=== PATIENT | female | born 1990 | race Caucasian/White ===

== ENCOUNTER 2017-02-13 00:07 | Emergency (ER) | payer OTHER ==
--- NOTE | 2017-02-13 00:43 | ED Physician Documentation ---
Nausea/Vomiting/Diarrhea - HISTORIAN Historian: patient - HPI Chief Complaint: Nausea,Vomiting,Diarrhea Onset: other (0730 this AM) Duration: waxing, waning Last known Well Code/Unknown Code: Known Timing: sudden onset - Associated Symptoms Vomiting: frequent. denies: bloody, blood-streaked Diarrhea: mild Abdominal Pain: cramping, aching, epigastric - ROS CONST: no problems, chills. denies: fever - PAST HX Past History: other (anxiety, depression, acid reflux) Surgeries/Procedures: other (tonsilectomy) Immunizations: referred to PCP Allergies/Adverse Reactions: Allergies Allergy/AdvReac Type Severity Reaction Status Date / Time sulfamethoxazole Allergy Verified 02/13/17 00:37 [From Bactrim] trimethoprim [From Bactrim] Allergy Verified 02/13/17 00:37 levalbuterol HCl AdvReac Rash Verified 02/13/17 00:37 [From Xopenex] Home Medications: Ambulatory Orders Medication Instructions Recorded Cyclobenzaprine HCl [Flexeril] 10 mg PO QD 02/13/17 Trazodone HCl 50 mg PO HS 02/13/17 - SOCIAL HX Smoking History: less than 1 pack/day (1/2 ppd) Alcohol Use: other (yesterday) Drug Use: none - FAMILY HX Family History: none - VITAL SIGNS Vital Signs: Vital Signs Temp Pulse Resp BP Pulse Ox 98.0 F 84 16 106/80 98 02/13/17 00:10 02/13/17 00:10 02/13/17 00:10 02/13/17 00:10 02/13/17 00:10 - REVIEWED ASSESSMENTS Nursing Assessment Reviewed: Yes Vitals Reviewed: Yes Progress - Progress Progress: 01:53 Patient states that her nausea and abd pain are better ED Results Lab/Radiology - Lab Results Lab Results: Lab Results 02/13/17 02/13/17 02/13/17 00:57 00:57 00:57 WBC 17.10 K/ul H K/ul (4.00-12.00) RBC 4.54 M/ul M/ul (3.90-5.20) Hgb 13.9 g/dL g/dL (12.0-16.0) Hct 40.7 % % (34.5-46.5) MCV 89.6 fl fl (80.0-100.0) MCH 30.5 pg pg (28.0-34.0) MCHC 34.1 g/dL g/dL (30.0-36.0) RDW 12.5 % % (11.3-14.3) Plt Count 399 K/mm3 K/mm3 (130-400) Neut % (Auto) 88.4 % H % (39.0-79.0) Lymph % (Auto) 6.8 % L % (16.0-50.0) [place] % (Auto) 3.8 % % (0.0-11.0) Eos % (Auto) 0.2 % % (0.0-6.8) Baso % (Auto) 0.3 (0.0-1.5) Neut # (Auto) 15.1 # k/uL H # k/uL (1.4-7.7) Lymph # (Auto) 1.2 # k/uL # k/uL (0.6-4.0) [place] # (Auto) 0.6 # k/uL # k/uL (0.0-0.9) Eos # (Auto) 0.0 # k/uL # k/uL (0.0-0.6) Baso # (Auto) 0.1 # k/uL # k/uL (0.0-0.5) Reactive Lymphs % 0.5 % % (0.0-5.0) Reactive Lymphs # 0.1 # k/uL # k/uL (0.0-0.8) Sodium 144 mmol/L mmol/L (136-145) Potassium 3.1 mmol/L L mmol/L (3.5-5.0) Chloride 103 mmol/L mmol/L (98-110) Carbon Dioxide 31 mmol/L mmol/L (20-32) BUN 15 mg/dL mg/dL (10-26) Creatinine 0.6 mg/dL mg/dL (0.4-1.5) Estimated Creat Clear 127 Est GFR ( Amer) > 60 (60 - ) Est GFR (Non-Af Amer) > 60 (60 - ) Glucose 162 mg/dL H mg/dL (70-99) Calcium 10.1 mg/dL mg/dL (8.5-10.5) Total Bilirubin 0.7 mg/dL mg/dL (0.2-1.2) AST 23 U/L U/L (0-41) ALT 17 U/L U/L (0-45) Alkaline Phosphatase 74 U/L U/L (46-116) Total Protein 7.8 g/dL g/dL (6.0-8.5) Albumin 4.9 g/dL g/dL (3.0-5.5) Amylase 40 U/L U/L (20-104) Serum HCG, Qual Negative (NEGATIVE) - Radiology Radiology Impressions: Abdominal series with chest History: 1 day of low abdominal pain Findings: A single view of the chest reveals clear lungs and normal heart size. Upright and supine abdominal radiographs reveal a normal bowel gas pattern without obstruction, constipation, or free air. No abnormal calcifications are observed. L5 is partially sacralized on the left. Impression: Normal. - Orders Orders: ED Orders Category Date Time Status ABD SERIES PA CHEST [RAD] Stat Exams 02/13/17 Ordered AMYLASE Routine Lab 02/13/17 00:57 Completed CBC/PLATELET/DIFF Routine Lab 02/13/17 00:57 Completed CMP Routine Lab 02/13/17 00:57 Completed SERUM HCG Routine Lab 02/13/17 00:57 Completed URINALYSIS Routine Lab 02/13/17 Ordered 0.9 % Sodium Chloride [Normal Saline] 1,000 ml Med 02/13/17 01:00 Discontinued IV Q10H 0.9 % Sodium Chloride [Normal Saline] 1,000 ml Med 02/13/17 01:00 Ordered IV Q10H Lidocaine 2%Visc 15ml [Xylocaine] Med 02/13/17 00:54 Discontinued 600 mg .ROUTE .STK-MED ONE Mag Hydrox/Al Hydrox/Simeth [Mylanta] Med 02/13/17 00:54 Discontinued 30 ml PO .STK-MED ONE Mag Hydrox/Al Hydrox/Simeth [Mylanta] Med 02/13/17 00:54 Discontinued 30 ml PO .STK-MED ONE Mag Hydrox/Al Hydrox/Simeth [Mylanta] 30 ml Med 02/13/17 00:48 Discontinued Lidocaine 2%Visc 15ml [Xylocaine] 20 mg PHENobarb/HYOSCY/ATROPINE/SCOP [] 10 ml PO NOW Ondansetron HCl/Pf [Zofran 4 mg/2 ml] Med 02/13/17 00:48 Discontinued 4 mg IVP NOW ONE Pantoprazole Sodium [Protonix] 40 mg Med 02/13/17 01:40 Discontinued 0.9 % Sodium Chloride [Sodium Chloride] 50 ml IV NOW Nausea Physical Exam - EXAM General Appearance: alert, mild distress EENT: eye inspection normal, ENT inspection normal, pharynx normal, no signs of dehydration Neck: normal inspection, thyroid normal, supple Respiratory: no resp distress, chest non-tender, breath sounds normal. No: wheezes, rales, rhonchi CVS: reg rate & rhythm, heart sounds normal, equal pulses, no murmur, no gallop Abdomen: no organomegaly, tenderness (diffuse in all 4 quadrants, worse over the epigastric area). No: guarding, rebound Back: non-tender Skin: warm/dry, normal color Extremities: non-tender Neuro/Psych: oriented X3, mood/affect nml, cognition normal Discharge Clincal Impression: Nausea & vomiting, GERD with esophagitis Additional Instructions: Avoid food that aggravate your symptom. Avoid spicy foods, alcohol,tobacco and chocolate. Take some omeprazole 20mg tablets once a day. If you continue to have some problems to follow-up with your primary care provider or return to the ED. Take Zofran as needed for nausea. Home Medications: Ambulatory Orders Cyclobenzaprine HCl [Flexeril] 10 mg PO QD 02/13/17 Trazodone HCl 50 mg PO HS 02/13/17 Condition: Stable Disposition: 01 HOME, SELF-CARE Decision to Admit: NO Date of Decison to Admit: 02/13/17 Decision Time: 01:06
[2017-02-13] MEDS ORDERED: ONDANSETRON HCL/PF 4 MG/ 2ML VIAL IVP ONE (00:48)
[2017-02-13] MEDS ORDERED: MAG HYDROX/AL HYDROX/SIMETH 30 ML, Lidocaine 2%Visc 15ml 20 MG, PHENobarb/HYOSCY/ATROPI... PO ONE ×3 (00:48)
[2017-02-13] MEDS ORDERED: Lidocaine 2%Visc 15ml 20 MG/ML UDC ONE (00:54)
[2017-02-13] MEDS ORDERED: 0.9 % SODIUM CHLORIDE 1,000 ML IV ONE (00:54)
[2017-02-13] MEDS ORDERED: MAG HYDROX/AL HYDROX/SIMETH 30 ML UDC PO ONE ×2 (00:54)
[2017-02-13] MEDS ORDERED: 0.9 % SODIUM CHLORIDE 1,000 ML IV SCH ×2 (01:00)
[2017-02-13 01:09] LABS: BASOPHILS % 0.3 (0.0-1.5); EOSINOPHILS % 0.2 % (0.0-6.8); MEAN CORPUSCULAR HEMOGLOBIN 30.5 pg (28.0-34.0); MEAN CORPUSCULAR VOLUME 89.6 fl (80.0-100.0); MONOCYTES % 3.8 % (0.0-11.0); NEUTROPHILS # 15.1 # k/uL (1.4-7.7)
[2017-02-13 01:14] LABS: eGFR (African) > 60; eGFR (Non-African) > 60
[2017-02-13] MEDS ORDERED: PANTOPRAZOLE SODIUM 40 MG in 0.9 % SODIUM CHLORIDE 50 ML IV ONE (01:40)
[2017-02-13] MEDS ORDERED: ONDANSETRON HCL 4 MG TAB.RAPDIS PO PRN (01:59)
[2017-02-13] MEDS ORDERED: ONDANSETRON HCL 4 MG TAB.RAPDIS ONE (02:10)
[2017-02-13 02:45] VITALS: BP 112/64
--- NOTE | 2017-02-13 04:46 | Diagnostic Imaging Report ---
ERICA ALVARADO~ [facility] [address] [facility] [id number] ~ ~ ~ ~ Report Submission Date: Feb 13, 2017 1:38:30 AM CDT Patient ~ Study Name: EDNA BARKER ~ Date: Feb 13, 2017 1:10:26 AM CDT ~ Modality Type: CR Gender: F ~ Description: CHEST,ABDOMEN : 89 ~ Institution: [facility] Physician: ERICA ALVARADO ~ ~ ~ ~ Abdominal series with chest History: 1 day of low abdominal pain Findings: A single view of the chest reveals clear lungs and normal heart size. Upright and supine abdominal radiographs reveal a normal bowel gas pattern without obstruction, constipation, or free air. No abnormal calcifications are observed. L5 is partially sacralized on the left. Impression: Normal. ~ Electronically signed on Feb 13, 2017 1:38:30 AM CDT by: Clifford KERR
== END 2017-02-13 02:25 | disposition home or self-care (01) ==
LOC: ED 00:07
DX: R11.2 Nausea with vomiting, unspecified (principal); K21.0 Gastro-esophageal reflux disease with esophagitis
CPT/HCPCS: 74022; 80053; 82150; 84703; 85025; 96361; 96365; 96375; 99283; J2405; A9270; A9270-GY; J7030; S1016